=== PATIENT | female | born 2005 | race Caucasian/White ===

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

== ENCOUNTER 2025-01-11 12:29 | Emergency (ER) | payer MEDICAID ==
[~2025-01-11] VITALS: Ht 157.5 cm; Wt 74.4 kg
[~2025-01-11 12:29] MED LIST changes: +ONDA-243 PO; -ONDA4TAB12 PO
[2025-01-11 12:38] VITALS: BP 144/101; PULSE 91; RESP 16; O2SAT 99
--- NOTE | 2025-01-11 12:48 | Physician Documentation ---
History of Present Illness ~ Chief Complaint: Complications Stated Complaint: REQUESTING TEST/XRAY Time Seen by MD: 12:42 Primary Medical Doctor: NONE Source: patient Mode of Arrival: POV Exam Limitations: no limitations HPI 19-year-old female with irregular menstrual cycles with like a test but had her menstrual cycle last month. Patient states that she has pelvic heaviness which she states she has had when she was in the past. Patient would also like a rib x-ray due to chronic over 5 years of sporadic sharp rib pain to the bilateral lower ribs intermittently. No injuries no shortness a breath no chest pain Medication Reconciliation Allergies: Coded Allergies: Penicillins (Unverified Allergy, Unknown, 12/19/22) Scheduled Dextromethorphan Polistirex (Children's Delsym), 30 MG PO BID Ibuprofen 100MG/5ML Susp* (Motrin 100 MG/5ML Susp.*), 200 MG PO q8 hrs ONDANSETRON ODT 4mg tablet (Ondansetron Odt), 1 TABLET PO Q6H Ondansetron Hcl (Zofran), 1 TAB PO Q6H PRN Past Medical History Past Medical History: No Pertinent History Alcohol Use: None Drug Use: none Lives with: Family Lives In: Home Occupation: child Review of Systems All Other Systems at this time: Reviewed and Negative Respiratory: Reports: see HPI Physical Exam Physical Exam Vital Signs: RN Vital Signs have been reviewed: Yes, Temperature: 98.3, Source: Temporal, Heart Rate: 91, Respiratory Rate: 16, BP: 144/101, Pulse Oximetry: 99, Weight: 74.400 General Appearance: alert, WD/WN, no apparent distress Respiratory: lungs clear, normal breath sounds, no respiratory distress Chest: no accessory muscle use, chest non-tender Cardiovascular: normal peripheral pulses, regular rate, rhythm, no edema Progress Results/Orders Results/Orders Orders - ROSSANA GREGORIO [employer] TECHNICIAN Chest,Single View (01/11/25 12:43) Completed Orders - ROSSANA GREGORIO [employer] TECHNICIAN Hcg, Ur Ql (01/11/25 12:43) Chest,Single View (01/11/25 12:43) Vital Signs 01/11/25 12:38 Temp 98.3 Pulse 91 Resp 16 B/P (MAP) 144/101 Pulse Ox 99 Laboratory Tests Test 8/22/25 12:44 Urine HCG, Qualitative Negative EKG/XRAY/CT/US/VASC/MRI Chest X-Ray : Additional Comments CHEST RADIOGRAPH Indication: CHEST PAIN Technique: Single frontal view of the chest was obtained Comparison: None FINDINGS: Lines and Tubes: None Lungs: No focal consolidation. Pleura: No effusion. No pneumothorax. Cardiomediastinal contours: Unremarkable Bones: No acute osseous abnormality. IMPRESSION: No acute cardiopulmonary disease. Medical Decision Making Findings Single-view chest discussed the chronic rib pain should be evaluated further by primary care test ordered Departure Time of Disposition: 13:52 Disposition: 01 HOME / SELF CARE / HOMELESS Impression: Primary Impression: Rib pain Condition: Stable Discharge Instructions: General Discharge Instructions Additional Instructions: Your test was negative as well as your x-ray shows no acute findings to your lungs or ribs follow up primary care for the chronic intermittent rib pain Referrals: NO PRIMARY CARE PROVIDER (PCP) Education Educated: Patient Educated regarding: diagnosis, treatment, need for follow up Signature Scribe Signature: No scribe Attestation: The note accurately reflects work and decisions made by me.Rossana GUEVARA 01/11/25 12:48 ROSSANA GREGORIO NP Jan 11, 2025 12:48
[2025-01-11 13:25] LABS: URINE HCG NEGATIVE (NEG)
--- NOTE | 2025-01-11 13:46 | RADIOLOGY REPORT ---
CHEST RADIOGRAPH Indication: CHEST PAIN Technique: Single frontal view of the chest was obtained Comparison: None FINDINGS: Lines and Tubes: None Lungs: No focal consolidation. Pleura: No effusion. No pneumothorax. Cardiomediastinal contours: Unremarkable Bones: No acute osseous abnormality. IMPRESSION: No acute cardiopulmonary disease.
[2025-01-11 14:02] VITALS: TEMP 98.3
== END 2025-01-11 14:05 | disposition home or self-care (01) ==
LOC: ER 12:31
DX: R07.81 Pleurodynia (principal); Z88.0 Allergy status to penicillin; Z79.899 Other long term (current) drug therapy
CPT/HCPCS: 71045; 81025; 99284